=== PATIENT | female | born 1990 | race Caucasian/White ===

== ENCOUNTER 2020-02-24 08:47 | Outpatient (CLI) | payer OTHER, SELFPAY ==
--- NOTE | 2020-02-24 09:30 | MR_ITS ---
WS: [id number] MRI RIGHT SHOULDER HISTORY: shoulder impingement COMPARISON: 02/18/2020 TECHNIQUE: Multiplanar sequences of the shoulder joint are submitted. Mild hypertrophy of the AC joint with mild acute inflammation. Small hypertrophic osteophytes and sof t tissue thickening at the AC joint with very minimal encroachment upon the supraspinatus muscle. The re is a tiny amount of subacromial and subdeltoid fluid. Normal shape of the acromion. No os acromion . Rotator cuff is intact. No tears or significant tendinopathy. There is a very tiny amount of increase d T2 signal in the supraspinatus muscle and tendon at the level of the AC joint hypertrophy. No muscl e atrophy or edema. Biceps tendon is in normal position. No labral tears. MR/MR shoulder RT wo con* [id number] IMPRESSION: 1. Mild AC joint hypertrophy with minimal encroachment upon the supraspinatus muscle and tendon. 2. Minimal tendinopathy in the supraspinatus tendon at the level of the AC babak nt encroachment. 3. No tendon tear.
== END 2020-02-24 08:48 | disposition home or self-care (01) ==
LOC: RADSHAW 08:51
PROVIDERS: PCP Nurse Practitioner Family; Visit Provider Nurse Practitioner Family
DX: M75.41 Impingement syndrome of right shoulder (principal)
CPT/HCPCS: 73221

== ENCOUNTER → 2020-09-21 10:52 | Outpatient (BNVA) | payer OTHER, SELFPAY | PROVIDERS: PCP Nurse Practitioner Family; Visit Provider Nurse Practitioner Family | DX: R50.9 Fever, unspecified (principal) | CPT/HCPCS: 87400; 87635 ==

== ENCOUNTER → 2020-10-28 00:01 | Outpatient (BNVA) | payer OTHER, SELFPAY | PROVIDERS: PCP Nurse Practitioner Family; Visit Provider Obstetrics & Gynecology | DX: Z12.4 Encounter for screening for malignant neoplasm of cervix (principal) | CPT/HCPCS: 88175 ==

== ENCOUNTER → 2023-01-09 15:30 | Outpatient (BNVA) | payer OTHER, SELFPAY | PROVIDERS: PCP Nurse Practitioner Family; Visit Provider Nurse Practitioner Women's Health | DX: Z01.419 Encounter for gynecological examination (general) (routine) without abnormal findings (principal) | CPT/HCPCS: 87624 ==

== ENCOUNTER → 2023-02-13 10:28 | Outpatient (BNVA) | payer OTHER, SELFPAY | PROVIDERS: PCP Nurse Practitioner Family; Visit Provider Nurse Practitioner Women's Health | DX: N92.6 Irregular menstruation, unspecified (principal) | CPT/HCPCS: 76830 ==

== ENCOUNTER 2023-03-09 11:14 | Day surgery (SDC) | payer OTHER, SELFPAY ==
[2023-03-08 13:13] VITALS: BMI 38.7
[2023-03-09 11:32] VITALS: BP 140/81; PULSE 85; RESP 18; TEMP 36.6; O2SAT 100
[2023-03-09] MEDS: sodium chloride 0.9% 1,000 ML 30 ML IV (11:47)
[2023-03-09 12:08] LABS: OR HCG Qualitative Urine Negative (Negative)
--- NOTE | 2023-03-09 12:39 | W.PM.OPSUD ---
Surgery/Procedure H&P Update DATE OF PROCEDURE: March 09, 2023 DATE H&P PERFORMED: 02/13/23 CHANGES TO PREVIOUS DOCUMENTATION: none PREOP DIAGNOSIS: abnormal uterine bleeding PRIMARY INDICATION FOR PROCEDURE: abnormal uterine bleeding PLANNED PROCEDURE: Operation Date: 03/09/23 13:20 Proposed Procedures p Hysteroscopy with Myosure, endometrial sampling 71017, Possible endometrial polypectomy 70254,N93.9](Not Applicable) - Ganesh Persaud MD s Poylpectomy(Not Applicable) - Ganesh Persaud MD
--- NOTE | 2023-03-09 13:12 | P.ANESASSM_ITS ---
Pre-Anesthetic Assessment Height/Weight: Height 1.78 m Weight 122.47 kg Temp Pulse Resp BP Pulse Ox O2 Del Method 97.9 F 85 18 140/81 100 Room Air 03/09/23 11:32 03/09/23 11:32 03/09/23 11:32 03/09/23 11:32 03/09/23 11:32 03/09/23 11:40 Preop Diagnosis: abnormal uterine bleeding Operation Date: 03/09/23 13:20 Proposed Procedures p Hysteroscopy with Myosure, endometrial sampling 01489, Possible endometrial polypectomy 00124,N93.9](Not Applicable) - Ganesh Persaud MD s Poylpectomy(Not Applicable) - Ganesh Persaud MD Familial anesthetic complications: none Was Beta Carlos taken within 24 hours: N/A Was Clonidine taken within 24 hours: N/A Last intake: Intake Last Liquid Date 03/08/23 Last Liquid Time 22:30 Last Solid Date 03/08/23 Last Solid Time 22:30 Social Tobacco and No alcohol Exam alert, oriented x 3 and regular rate & rhythm Airway Submandibular: within normal limits Cervical ROM: within normal limits Mallampati: Class II Dentition: false Pulmonary Chronic Obstructive Pulmonary Disease Metabolic Morbid Obesity Anesthetic Plan ASA status: 2 Anesthesia: General Medications/Allergies Home Medications Medication Instructions Recorded Confirmed Last Taken Type No Known Home Medications 11/18/22 03/08/23 Unknown History Allergies Allergy/AdvReac Type Severity Reaction Status Date / Time cefaclor [From [facility]] Allergy Intermediate rash can Verified 02/13/23 11:11 take amoxicillin Current Medications Generic Name Dose Route Start Last Admin Trade Name Troyq PRN Reason Stop Dose Admin Sodium Chloride 1,000 mls @ 30 mls/hr 03/09/23 11:30 03/09/23 11:47 Sodium Chloride 0.9% IV 03/10/23 11:29 30 mls/hr .Q24H CHETAN Administration PFSH Anesthesia Medical History Hidradenitis suppurativa Diagnosed in 2021 managed by ticket collector or usher Dr. Reyes No pertinent past medical history Denies diabetes, asthma, hypertension, seizures, DVT/PE PCP:[facility] Surgical History S/P laparoscopic cholecystectomy 2008 Status post LEEP (loop electrosurgical excision procedure) of cervix 2007 performed [place] an abnormal [place] [facility] [place] Status post tubal ligation 2010-- procedure via umbilicus Family History Mother Diabetes Hypertension Thyroid condition Grandmother Diabetes maternal and paternal Grandfather Diabetes maternal and paternal Denies family history of Colon cancer Ovarian cancer Heart disease Hyperlipidemia Breast cancer Uterine cancer Stroke Social History Smoking and tobacco status: current every day smoker Female Reproductive History Date of last menstrual period: 02/22/23 Data Anesthesia Cardiac Studies: No Data to Display
[2023-03-09 13:49] VITALS: BP 143/70; PULSE 84; RESP 19; TEMP 36.1; O2SAT 95
[2023-03-09 13:55] VITALS: BP 144/98; PULSE 72; RESP 19; O2SAT 93
[2023-03-09 14:00] VITALS: BP 141/98; PULSE 71; RESP 13; O2SAT 100
[2023-03-09 14:08] VITALS: BP 138/89; PULSE 74; RESP 18; TEMP 36.5; O2SAT 100
[2023-03-09 14:35] VITALS: BP 136/87; PULSE 74; RESP 18; TEMP 36.5; O2SAT 100
--- NOTE | 2023-03-09 16:55 | ANE.PACU2 ---
Inpatient post-anesthesia follow up: Airway intact: Yes Vital signs: Temperature 97.7 F Pulse Rate 74 Respiratory Rate 18 Blood Pressure 136/87 Pulse Oximetry 100 Oxygen Delivery Me thod Room Air Oxygen Flow Rate Fraction of Inspir ed Oxygen Hydration adequate: Yes Nausea and vomiting: No Pain level: 3 Mental status: Baseline
--- NOTE | 2023-03-10 08:54 | PM.OP ---
Operative Report Date of procedure: March 09, 2023 Pre-op diagnosis: Preop Diagnosis abnormal uterine bleeding Post-op diagnosis: same Post-op findings: cervix high up in vaginal canal Cervix stenotic and tortuous ? Unable to introduce hysteroscope ? Only able to insert curved curette ? Endometrial tissue obtained and sent to pathology ? Procedure done: curettage of uterus Specimens removed/disposition: endometrial curettings Surgeon: Ganesh Persaud MD Estimated blood loss (mL): 0 Complications: none Condition: stable Disposition: PACU Brief History: 32 y.o. with abnormal uterine bleeding Procedure: Informed consent signed. Patient taken to the operating room. Anesthesia induced. Patient was placed in dorsolithotomy position, prepped and draped for hysteroscopy. A bivalve speculum was placed in the vagina. The cervix was noted to be high in vaginal canal. The cervix was stenotic and tortuous. Even after dilatation, can only admit a small curved curette. Unable to introduce hysteroscopy. The anterior lip of the cervix was grasped with a sharp-toothed tenaculum. Endometrial curettage was done with a sharp curette. Endometrial tissue was sent to pathology. The sharp-toothed tenaculum was removed. There was no bleeding from the endometrial cavity or cervix. The patient was then placed supine and awakened and taken to the PACU. Postop condition: stable EBL: none Sponge and instruments counts were normal x 2 Complications: none
== END 2023-03-09 14:40 | disposition home or self-care (01) ==
PROVIDERS: Anesthesiology; PCP Nurse Practitioner Family; Visit Provider Obstetrics & Gynecology
PROC: 0UDB8ZZ Extraction of Endometrium, Via Natural or Artificial Opening Endoscopic (ICD-10-PCS; CPT 58558; principal; 2023-03-09 13:10)
DX: N93.9 Abnormal uterine and vaginal bleeding, unspecified (principal); J44.9 Chronic obstructive pulmonary disease, unspecified; E66.01 Morbid (severe) obesity due to excess calories; Z68.38 Body mass index [BMI] 38.0-38.9, adult; F17.200 Nicotine dependence, unspecified, uncomplicated
CPT/HCPCS: 58120; 81025; 84703; 88305; A4216; J1100; J1200; J2250; J2405; J2704; J3010; J7030